=== PATIENT | male | born 2000 | race Native Hawaiian/Other Pacific Islander ===

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

== ENCOUNTER 2021-12-22 17:54 | Emergency (ER) | payer MEDICAID ==
[~2021-12-22] VITALS: Ht 175.2 cm; Wt 81.6 kg
== END 2021-12-22 18:41 | disposition home or self-care (01) ==
LOC: ED 17:54
DX: J68.9 Unspecified respiratory condition due to chemicals, gases, fumes and vapors (principal); R05.9 Cough, unspecified; Z79.899 Other long term (current) drug therapy

== ENCOUNTER 2023-09-27 12:43 | Emergency (ER) | payer MEDICAID ==
[~2023-09-27] VITALS: Ht 175.2 cm; Wt 72.6 kg
[2023-09-27] MEDS ORDERED: AVPAK AZITHROM250 M1 PO (14:28)
== END 2023-09-27 14:31 | disposition home or self-care (01) ==
LOC: ED 12:43
DX: J40 Bronchitis, not specified as acute or chronic (principal); Z87.891 Personal history of nicotine dependence; Z20.822 Contact with and (suspected) exposure to COVID-19